=== PATIENT | male | born 1970 | race Caucasian/White ===

== ENCOUNTER 2020-11-09 12:05 | Emergency (ER) | payer OTHER ==
[2020-11-09 12:47] LABS: BASOPHILS % (AUTO) 0.5 %; EOSINOPHILS # (AUTO) 0.2 10^3/uL (0.0-0.7); EOSINOPHILS % (AUTO) 1.9 %; HCT - HEMATOCRIT 45.8 % (42.0-52.0); HGB - HEMOGLOBIN 15.7 g/dL (14.0-18.0); MEAN CORPUSCULAR HEMOGLOBIN 31.4 pg (27.0-31.0); MEAN CORPUSCULAR HGB CONC 34.3 g/dL (32.0-36.0); MEAN CORPUSCULAR VOLUME 91.6 fL (80.0-94.0); MEAN PLATELET VOLUME 9.1 fL (7.4-11.4); MONOCYTES # (AUTO) 0.5 10^3/uL (0.0-1.0); MONOCYTES % (AUTO) 6.8 %; NEUTROPHILS # (AUTO) 5.2 10^3/uL (1.5-6.6); NEUTROPHILS % (AUTO) 65.7 %; PLT - PLATELET COUNT 262 10^3/uL (130-450); RED CELL DISTRIBUTION WIDTH 12.7 % (12.0-15.0); WHITE BLOOD COUNT 7.9 x10^3/uL (4.8-10.8)
--- NOTE | 2020-11-09 12:55 | ED Physician Documentation ---
PD HPI CHEST PAIN - Stated complaint Stated Complaint: HIGH BP, DULL CP - Chief complaint Chief Complaint: Cardiac - History obtained from History obtained from: Patient - History of Present Illness Timing - onset: Today (onset this morning of chest pressure. Took his BP and noted it elevated at about 160/90, which is high for him. Has had 2 prior stents of LAD so is worried about chest pains.) Timing - onset during: Light activity Timing - duration: Hours Timing - details: Gradual onset, Still present, Waxing and waning Quality: Pressure, Tightness Location: Substernal Radiation: Back Improved by: No: Rest Worsened by: No: Inspiration, Movement, Palpation Associated symptoms: No: Shortness of air, Diaphoresis, Nausea, Palpitations Similar symptoms before: Diagnosis (did not get chest pain per se with his CAd, but dyspnea and fatigue.) Recently seen: Not recently seen Review of Systems Constitutional: denies: Fever, Chills Nose: denies: Rhinorrhea / runny nose, Congestion Throat: denies: Sore throat Cardiac: denies: Palpitations, Pedal edema, Calf pain Respiratory: denies: Dyspnea, Cough GI: denies: Abdominal Pain, Nausea, Vomiting, Diarrhea Musculoskeletal: denies: Extremity swelling Neurologic: denies: Generalized weakness, Near syncope PD PAST MEDICAL HISTORY - Past Medical History Cardiovascular: Coronary artery disease, Angina Respiratory: None Neuro: None Endocrine/Autoimmune: None - Past Surgical History Cardiovascular: Coronary stent (2 in LAD) - Present Medications Home Medications: Ambulatory Orders Medication Instructions Recorded Confirmed Aspirin [[place] Aspirin] 81 mg PO DAILY 11/09/20 11/09/20 Atorvastatin Calcium [Lipitor] 80 mg PO DAILY 11/09/20 11/09/20 Clopidogrel [Plavix] 75 mg PO DAILY 11/09/20 11/09/20 Famotidine [Pepcid] 20 mg PO DAILY #30 tablet 11/09/20 Lidocaine Viscous 2% [Xylocaine 5 ml PO Q4H PRN #100 ml 11/09/20 Viscous 2%] Lisinopril [Zestril] 10 mg PO DAILY 11/09/20 11/09/20 - Allergies Allergies/Adverse Reactions: Allergies Allergy/AdvReac Type Severity Reaction Status Date / Time No Known Drug Allergies Allergy Verified 11/09/20 12:18 PD ED PE NORMAL - Vitals Vital signs reviewed: Yes - General General: Alert and oriented X 3, No acute distress (but a bit anxious about BP), Well developed/nourished - HEENT HEENT: Pharynx benign - Neck Neck: Supple, no meningeal sign, No adenopathy - Cardiac Cardiac: RRR, No murmur - Respiratory Respiratory: Clear bilaterally, Other (no chestwall tenderness) - Abdomen Abdomen: Soft, Non tender - Back Back: No CVA TTP - Derm Derm: Normal color, Warm and dry - Extremities Extremities: No edema, No calf tenderness / cord - Neuro Neuro: Alert and oriented X 3, No motor deficit, Normal speech Results - Vitals Vitals: Oxygen O2 Source Room air - EKG (time done) 12:15 Rate: Rate (enter#) (70) Rhythm: NSR [place]: Normal Intervals: Normal NC QRS: Normal Ischemia: Normal ST segments. No: ST elevation c/w ischemia, ST depression - Labs Labs: Laboratory Tests 11/09/20 11/09/20 11/09/20 12:26 12:26 12:26 WBC 7.9 RBC 5.00 Hgb 15.7 Hct 45.8 MCV 91.6 MCH 31.4 H MCHC 34.3 RDW 12.7 Plt Count 262 MPV 9.1 Neut # (Auto) 5.2 Lymph # (Auto) 2.0 [place] # (Auto) 0.5 Eos # (Auto) 0.2 Baso # (Auto) 0.0 Absolute Nucleated RBC 0.00 Nucleated RBC % 0.0 Sodium 138 Potassium 4.2 Chloride 104 Carbon Dioxide 25 Anion Gap 9.0 BUN 16 Creatinine 0.9 Estimated GFR (MDRD) 89 Glucose 108 H Calcium 9.4 Total Bilirubin 0.7 AST 27 ALT 30 Alkaline Phosphatase 65 Troponin I High Sens 5.9 Total Protein 8.0 Albumin 4.6 Globulin 3.4 Albumin/Globulin Ratio 1.4 Lipase 27 - Rads (name of study) chest xray Radiology: Prelim report reviewed (no acute process), See rad report PD MEDICAL DECISION MAKING - ED course Complexity details: re-evaluated patient (improved entirely with GI cocktail. ), considered differential, d/w patient Departure - Departure Disposition: 01 Home, Self Care Clinical Impression: Chest pain Qualifiers: Chest pain type: precordial pain Qualified Code(s): R07.2 - Precordial pain Condition: Stable Record reviewed to determine appropriate education?: Yes Instructions: ED Chest Pain NonCardiac, ED Gastritis Follow-Up: RAMON Bowens [Provider Group] Prescriptions: Famotidine [Pepcid] 20 mg PO DAILY #30 tablet Lidocaine Viscous 2% [Xylocaine Viscous 2%] 5 ml PO Q4H PRN #100 ml PRN Reason: Pain Comments: Your EKG, chest x-ray, blood tests including troponin are normal. No signs of heart or lung causes for your chest pain. It is good that it was improved with the antacid. Presume some gastritis or reflux type cause. Famotidine daily for the next month or so. Add antacid such as Maalox or Mylanta if needed for recurrent episodes. He can add small amount of lidocaine to that if needed for the discomfort. Follow-up with your primary care if not consistently better over the next several days to a week. Continue your current usual medications. Discharge Date/Time: 11/09/20 14:05
[2020-11-09 13:00] LABS: ALBUMIN 4.6 g/dL (3.2-5.5); ALBUMIN/GLOBULIN RATIO 1.4 (1.0-2.2); BILIRUBIN,TOTAL 0.7 mg/dL (0.2-1.0); CALCIUM 9.4 mg/dL (8.5-10.3); CREATININE 0.9 mg/dL (0.6-1.2); POTASSIUM 4.2 mmol/L (3.5-5.0)
[2020-11-09] MEDS ORDERED: MAG HYDROX/AL HYDROX/SIMETH 30 ML UDC PO STA (13:21)
[2020-11-09] MEDS ORDERED: LIDOCAINE VISCOUS 2% 15 ML UDC MM STA (13:21)
--- NOTE | 2020-11-09 14:00 | XRAY Report ---
PROCEDURE: Chest 1 View X-Ray INDICATIONS: Chest Pain TECHNIQUE: One view of the chest was acquired. COMPARISON: None FINDINGS: Surgical changes and devices: None. Lungs and pleura: No pleural effusions or pneumothorax. Lungs are clear. Mediastinum: Mediastinal contours appear normal. Heart size is normal. Bones and chest wall: No suspicious bony lesions. Overlying soft tissues appear unremarkable. IMPRESSION: No acute pulmonary process. Reviewed by: Nicole Lynn MD on 11/09/2020 1:58 PM PDT Approved by: Nicole Lynn MD on 11/09/2020 1:58 PM PDT Station ID: [id number]
[2020-11-09 14:01] VITALS: BP 134/72
== END 2020-11-09 14:05 | disposition home or self-care (01) ==
LOC: ED 12:05
DX: R07.2 Precordial pain (principal); I25.119 Atherosclerotic heart disease of native coronary artery with unspecified angina pectoris; Z95.5 Presence of coronary angioplasty implant and graft
CPT/HCPCS: 36415; 71045; 80053; 83690; 84484; 85025; 93005; 99284; A9270